=== PATIENT | female | born 1985 | race Caucasian/White ===

== ENCOUNTER 2023-04-06 18:18 | Emergency (ER) | payer MEDICAID ==
[~2023-04-06] VITALS: Ht 172.7 cm; Wt 81.8 kg
[2023-04-06 20:05] VITALS: BP 101/65; PULSE 90; RESP 17; TEMP 98.5; O2SAT 100
[2023-04-06 21:40] LABS: BILIRUBIN,URINE SMALL (Neg); CLARITY,URINE TURBID (Clear); COLOR,URINE YELLOW (Yellow); GLUCOSE, URINE NEGATIVE (Neg); KETONES,URINE TRACE mg/dl (Neg); LEUKOCYTE ESTERASE ,URINE LARGE (Neg); NITRITES, URINE NEGATIVE (Neg); OCCULT BLOOD,URINE MODERATE (Neg); PH,URINE 5.5 (4.8-8.0); PROTEIN,URINE 100 mg/dl (Neg); URINE HCG NEGATIVE (NEG)
[2023-04-06 21:49] LABS: UA COLLECTION TYPE CLN CATCH MIDSTREAM
[2023-04-06 22:00] LABS: BACTERIA,URINE 3+ /HPF (Neg); SQUAMOUS EPITHELIAL CELL,UR FEW /LPF (FEW); TRANSITIONAL EPI CELLS,URINE FEW /HPF; WBC,URINE TNTC /HPF (0-4)
== END 2023-04-07 01:26 | disposition left against medical advice (07) ==
LOC: ER 18:20
DX: R10.9 Unspecified abdominal pain (principal); Z53.21 Procedure and treatment not carried out due to patient leaving prior to being seen by health care provider
CPT/HCPCS: 81001; 81025; 87077; 87088; 87186; 99281; A6266